=== PATIENT | male | born 1995 | race Caucasian/White ===

== ENCOUNTER 2017-06-07 10:44 | Emergency (ER) | payer OTHER ==
[~2017-06-07] VITALS: Ht 185.4 cm; Wt 108.9 kg
[~2017-06-07 10:44] MED LIST: ADDERALL XR25 MG PO; ADDERALL30 MG PO; ATARAX25 MG PO; FLEXERIL10 MG PO; HYDROCODONE BIT1 T11 PO; MOTRIN800 MG PO; Motrin,Rufen800 MG PO; PREDNICOT20 MG PO; Zofran4 MG PO
[2017-06-07 10:50] VITALS: BP 138/75
[2017-06-07 11:13] LABS: BASO % 0.1 % (0.0-1.0); EOS % 0.5 % (1.0-4.0); HEMATOCRIT 48.1 % (42.0-52.0); HEMOGLOBIN 17.2 g/dl (14.0-18.0); LYMPH # 0.9 10*3/uL (1.3-4.4); LYMPH % 10.7 % (27.0-41.0); MEAN CELL VOLUME 84.2 fl (80.0-94.0); MEAN CORPUSCULAR HGB 30.1 pg (27.0-31.0); MEAN CORPUSCULAR HGB CONC 35.8 g/dl (33.0-37.0); MEAN PLATELET VOLUME 9.4 fl (9.6-12.3); MONO # 0.9 10*3/uL (0.1-1.0); MONO % 11.5 % (3.0-9.0); NEUT # 6.2 10*3/uL (2.3-7.9); NEUT % 76.8 % (47.0-73.0); PLATELET COUNT AUTOMATED 180 10*3/uL (130-400); RED BLOOD COUNT 5.71 10*6/uL (4.50-5.90); RED CELL DISTRI WIDTH 12.5 % (0-14.5)
[2017-06-07 11:28] LABS: ALBUMIN 4.1 gm/dl (3.1-4.5); ALKALINE PHOSPHATASE 59 U/L (45-117); BUN 12 mg/dl (7-24); CHLORIDE 102 mmol/L (98-107); CREATININE 0.89 mg/dL (0.70-1.30); LIPASE 50 U/L (73-393); POTASSIUM 3.7 mmol/L (3.5-5.1); SGOT/AST 37 IU/L (3-35); SGPT/ALT 26 U/L (12-78); SODIUM 136 mmol/L (136-145); TOTAL PROTEIN 8.1 gm/dL (6.4-8.2)
[2017-06-07 12:23] LABS: BILIRUBIN 2+ (NEGATIVE); BLOOD 1+ (NEGATIVE); CLARITY SL CLOUDY (CLEAR); COLOR YELLOW (YELLOW); GLUCOSE NEGATIVE (NEGATIVE); KETONE 3+ (NEGATIVE); LEUKO ESTERASE NEGATIVE (NEGATIVE); NITRITE NEGATIVE (NEGATIVE); SPECIFIC GRAVITY 1.025 (1.005-1.030)
[2017-06-07 12:38] LABS: BACTERIA 2+; CALCIUM OXALATE CRYSTALS TRACE; MUCOUS 2+; RBC 16-20 rbc/hpf (0-2)
[2017-06-07] MEDS ORDERED: PHENERGAN25 M3 PO (14:50)
[2017-06-08] MEDS ORDERED: REGLAN10 M1 PO (03:29)
[2017-06-08] MEDS ORDERED: BENADRYL ALLERG25 M5 PO (03:29)
[2017-06-08] MEDS ORDERED: SEPTDS PO (03:31)
== END 2017-06-07 14:56 | disposition home or self-care (01) ==
LOC: ED 10:44
PROVIDERS: Family Medicine
DX: K52.9 Noninfective gastroenteritis and colitis, unspecified (principal); R11.2 Nausea with vomiting, unspecified; Z79.899 Other long term (current) drug therapy

== ENCOUNTER 2017-06-08 03:06 | Emergency (ER) | payer OTHER ==
[~2017-06-08] VITALS: Wt 108.9 kg
[~2017-06-08 03:06] MED LIST changes: +PHENERGAN25 M3 PO
[2017-06-08 03:11] VITALS: BP 145/79
[2017-06-08] MEDS ORDERED: REGLAN10 M1 PO (03:29)
[2017-06-08] MEDS ORDERED: BENADRYL ALLERG25 M5 PO (03:29)
[2017-06-08] MEDS ORDERED: SEPTDS PO (03:31)
[2017-06-09] MEDS ORDERED: ZOFRAN ODT4 MG SL (00:34)
[2017-06-09] MEDS ORDERED: PROTONIX40 MG PO (00:34)
[2017-06-09] MEDS ORDERED: ADDERALL 20 MG20 MG PO (01:18)
== END 2017-06-08 03:48 | disposition home or self-care (01) ==
LOC: ED 03:06
DX: N39.0 Urinary tract infection, site not specified (principal); R11.10 Vomiting, unspecified; R31.9 Hematuria, unspecified

== ENCOUNTER 2017-06-08 22:29 | Inpatient (IN) | payer OTHER ==
[~2017-06-08] VITALS: Ht 185.4 cm; Wt 104.4 kg
--- NOTE | ~2017-06-08 | O ---
[place], [place] OPERATIVE NOTE NAME: OSCAR DUQUE JR UNIT #: [id number] ROOM: 503 DOCTOR: ALISSA ANTOINE MDJOHNMILA BIRTHDATE: [birth year] DOS: HISTORY OF PRESENT ILLNESS: A 22-year-old patient who presented with chief complaint of relentless nausea, vomiting 2 days ago and eventually has had some streaks of blood in his emesis. His white blood cell at the time of admission was 8, H and H of 17 and 48. His latest CBC today again is stable and no leukocytosis. Basic metabolic panel: GFR greater than 60. Electrolytes are within normal limit. Comprehensive metabolic panel, electrolytes reassessed. Liver function test normal. Amylase and lipase within normal limit. CT scan of the abdomen and pelvis: No definitive intra-abdominal pathology was found and no biliary dilation, no point of concern. Urine cultures were negative. PAST MEDICAL HISTORY: ADHD. SOCIAL HISTORY: Nonsmoker, nonalcohol consumer. PAST SURGICAL HISTORY: Nil. FAMILY HISTORY: Noncontributory. PROCEDURE: Today's procedure part of investigation is panendoscopy plus biopsy. PREMEDICATION: Versed and Diprivan. SCOPE: Olympus forward-viewing gastroscope Q10 video. REPORT: After putting the patient in the left lateral position and after application of lubricant to the scope, the scope was introduced. Thereafter, under direct visualization, I advanced through the length of esophagus without difficulty. Distal esophageal ulceration was noticed. Gastric pouch was entered. Gastritis was identified. Antrum was biopsied. Duodenal bulb, second and third part patent and no obstruction, no mass in the stomach. No acute point of concern. The patient extubated after GI reflection of the scope reveals cardia to be benign and bile reflux, distal esophagitis was noticed. The patient tolerated the procedure well. IMPRESSION: Distal esophagitis and distal esophageal ulcerations, superficial; however, gastritis, status post biopsy. PLAN AND DISCUSSION: I believe this patient has had an event of viral gastroenteritis to be etiology for his distress. Therefore, we are going to topically treat with Sucralfate slurry sips 2 grams q.i.d. We are going to keep him on Protonix 40 mg b.i.d. while he is in the hospital. We are going to give him a dose of Reglan to reverse his nausea feeling and at the time of discharge, he can be discharged on Protonix 40 mg daily. As far as diet is concerned, we are going to offering him GERD diet to see if he can tolerate. [place], [place] OPERATIVE NOTE NAME: DUNIA YUSUFOSCAR PIPE UNIT #: [id number] ROOM: [facility] DOCTOR: GUIDO ANTOINE MD BIRTHDATE: [birth year] GUIDO ANTOINE MD CM:OPRECORD:OPERATIVE NOTE [id number] GUIDO ANTOINE MD 06/09/172115 interface
--- NOTE | ~2017-06-08 | WRIGHTHP ---
[place], [place] PATIENT HISTORY AND PHYSICAL EXAM NAME: OSCAR DUQUE JR UNIT #: [id number] ROOM: 503 DOCTOR: CLARA BALDERAS MD BIRTHDATE: [birth year] DOS: 06/09/2017 HISTORY OF PRESENT ILLNESS: The patient is 22 years old patient who presents with complaints of nausea, emesis. The patient states that he had multiple emeses yesterday and was bloody and so he decided to come into the Emergency Room, some minimal abdominal pain also. Denies having any fever, any chills, any chest pains or palpitations. States that his throat is quite sore and he is unable to swallow even spit, but does not have any fever or chills. PAST MEDICAL HISTORY: Significant for ADHD. MEDICATION: He takes Adderall as medication. SOCIAL HISTORY: He does not smoke, he does not drink. The last time he had alcohol was a month ago as per the patient. He occasionally smokes weed. PHYSICAL EXAMINATION: GENERAL: He is awake and alert and oriented. VITAL SIGNS: Blood pressure is 133/71, pulse of 74, respirations 18, temperature 98.6, a few exudates note in the back of posterior pharynx. LUNGS: Diminished breath sounds, clear. HEART: Regular. ABDOMEN: Soft. ASSESSMENT AND PLAN: 1. Abdominal pain, nausea, emesis, possibly gastritis. Protonix has been ordered. Dr. Parada has been consulted for procedure this morning. 2. Possible strep throat. Strep screen has been ordered and Cetacaine spray will be given to the bedside. If the strep screen does come back positive, antibiotics will be started. 3. Attention deficit hyperactivity disorder, on Adderall. Meds on hold because of his pending procedure. CLARA BALDERAS MD CM:HISPHYS:PATIENT HISTORY AND PHYSICAL EXAMINATION 5 [id number] CLARA BALDERAS MD 06/09/17 1026 interface
--- NOTE | ~2017-06-08 | DS ---
[place], [place] DISCHARGE SUMMARY [id number] UNIT #: [id number] ROOM: 503 DOCTOR: KOKI HARRIS MD BIRTHDATE: [birth year] DOS: 06/10/2017 DISCHARGE DIAGNOSES: 1. The patient with distal esophageal ulcers on EGD with recurrent nausea, vomiting prior to admission have completely resolved. 2. Attention deficit disorder. HOSPITAL COURSE: The patient presented to the Emergency Department at [facility] with complaints of recurrent nausea, vomiting and after he came to the Emergency Department again he was admitted and treated with hydration with normal saline and taken for an EGD by Dr. Parada who performed an EGD, showing distal esophageal ulcers. Dr. Parada recommended treatment with Protonix, which will be continued. The patient will also continue on his Adderall that he was taking at home and follow up with Dr. Nael Peña, his PCP within a week of discharge. LABORATORY DATA: Urinalysis showing no signs of infection. Normal CBC. EGD results as mentioned above. Lactic acid level is normal. DISCHARGE MANAGEMENT: The patient to take Carafate 2 grams q.i.d., Protonix 40 mg a day, Adderall 40 mg once a day and follow up with his PCP, Dr. Nael Peña, in less than a week. KOKI HARRIS MD CM:ARIANA [id number] KOKI HARRIS MD 06/10/171851 interface
[~2017-06-08 22:29] MED LIST changes: +BENADRYL ALLERG25 M5 PO; +REGLAN10 M1 PO; +SEPTDS PO
[2017-06-08 22:36] VITALS: BP 149/73
[2017-06-08 23:43] LABS: ALKALINE PHOSPHATASE 53 U/L (45-117); BUN 14 mg/dl (7-24); CHLORIDE 102 mmol/L (98-107); CREATININE 0.93 mg/dL (0.70-1.30); LIPASE 53 U/L (73-393); POTASSIUM 3.7 mmol/L (3.5-5.1); SGOT/AST 32 IU/L (3-35); SGPT/ALT 26 U/L (12-78); SODIUM 137 mmol/L (136-145); TOTAL PROTEIN 7.8 gm/dL (6.4-8.2)
[2017-06-08 23:45] LABS: HEMATOCRIT 45.9 % (42.0-52.0); HEMOGLOBIN 16.7 g/dl (14.0-18.0); MEAN CELL VOLUME 83.3 fl (80.0-94.0); MEAN CORPUSCULAR HGB 30.3 pg (27.0-31.0); MEAN CORPUSCULAR HGB CONC 36.4 g/dl (33.0-37.0); MEAN PLATELET VOLUME 9.9 fl (9.6-12.3); PLATELET COUNT AUTOMATED 178 10*3/uL (130-400); RED BLOOD COUNT 5.51 10*6/uL (4.50-5.90); RED CELL DISTRI WIDTH 12.4 % (0-14.5); WHITE BLOOD COUNT 6.1 10*3/uL (4.8-10.8)
[2017-06-09] VITALS (9 sets, daily range): BP systolic 114–137; BP diastolic 65–77
[2017-06-09 00:05] LABS: ATYPICAL LYMPHS 3 % (0-0); PLATELET SUFFICIENCY NORMAL (NORMAL); TOTAL CELLS COUNTED 100 #CELLS
--- NOTE | 2017-06-09 00:28 | NUR ---
PT STATES HE IS STILL UNABLE TO PROVIDE URINE SPECIMEN.
[2017-06-09] MEDS ORDERED: ZOFRAN ODT4 MG SL (00:34)
[2017-06-09] MEDS ORDERED: PROTONIX40 MG PO (00:34)
--- NOTE | 2017-06-09 01:05 | NUR ---
Time: 104 A 22 year old M admitted to under services of DR. STEVEN KIMBROUGH,KOKI Phillips Pt. arrived via wheel chair from ER. Chief complaint: N/V/D SINCE MONDAY. ER VISIT X 3 THIS WK. NICOLASA RODRIGUES
[2017-06-09] MEDS ORDERED: ADDERALL 20 MG20 MG PO (01:18)
--- NOTE | 2017-06-09 01:45 | NUR ---
DR HARRIS CONTACTED, ADMISSION ORDERS RECEIVED
--- NOTE | 2017-06-09 01:55 | NUR ---
CALLED TO ROOM BY GIRLFRIEND. PATIENT HAS MODERATE WATER-LIKE EMESIS WITH BLOOD STREAKS.
--- NOTE | 2017-06-09 02:15 | NUR ---
MEDS ADMINISTERED PER PRN ORDER: ZOFRAN IV FOR NAUSEA, MORPHINE IV FOR THROAT PAIN RATING A 10, TRAZADONE PO TO ASSIST WITH SLEEP. IV FLUIDS INITIATED. CALL LIGHT WITHIN REACH. WILL MONITOR
--- NOTE | 2017-06-09 04:00 | NUR ---
MEDS APPEAR EFFECTIVE. SLEEPING. RESPIRATIONS EASY. IV FLUIDS MAINTAINED. CALL LIGHT WITHIN REACH
--- NOTE | 2017-06-09 06:00 | NUR ---
RESTED SINCE ARRIVING ON FLOOR. NPO FOR EGD WITH ELINA TODAY. IV FLUIDS MAINTAINED. CALL LIGHT WITHIN REACH.
[2017-06-09 06:50] LABS: BASO % 0.5 % (0.0-1.0); EOS % 0.5 % (1.0-4.0); HEMATOCRIT 42.5 % (42.0-52.0); HEMOGLOBIN 14.9 g/dl (14.0-18.0); LYMPH # 1.1 10*3/uL (1.3-4.4); LYMPH % 14.9 % (27.0-41.0); MEAN CELL VOLUME 84.8 fl (80.0-94.0); MEAN CORPUSCULAR HGB 29.7 pg (27.0-31.0); MEAN CORPUSCULAR HGB CONC 35.1 g/dl (33.0-37.0); MEAN PLATELET VOLUME 10.2 fl (9.6-12.3); MONO # 1.1 10*3/uL (0.1-1.0); MONO % 14.4 % (3.0-9.0); NEUT # 5.1 10*3/uL (2.3-7.9); NEUT % 69.4 % (47.0-73.0); PLATELET COUNT AUTOMATED 178 10*3/uL (130-400); RED BLOOD COUNT 5.01 10*6/uL (4.50-5.90); RED CELL DISTRI WIDTH 12.5 % (0-14.5); WHITE BLOOD COUNT 7.4 10*3/uL (4.8-10.8)
[2017-06-09 07:01] LABS: BUN 12 mg/dl (7-24); CHLORIDE 104 mmol/L (98-107); POTASSIUM 3.7 mmol/L (3.5-5.1); SODIUM 137 mmol/L (136-145)
[2017-06-09 10:19] LABS: BILIRUBIN 1+ (NEGATIVE); BLOOD TRACE-INTACT (NEGATIVE); CLARITY CLEAR (CLEAR); COLOR YELLOW (YELLOW); GLUCOSE NEGATIVE (NEGATIVE); KETONE 3+ (NEGATIVE); LEUKO ESTERASE NEGATIVE (NEGATIVE); NITRITE NEGATIVE (NEGATIVE); PH 6.5 (5.0-9.0)
[2017-06-09 10:30] LABS: RBC 0-2 rbc/hpf (0-2); WBC 0-2 wbc/hpf (0-5)
--- NOTE | 2017-06-09 14:15 | NUR ---
PATIENT LEFT FOR EGD.
--- NOTE | 2017-06-09 17:15 | NUR ---
CALLED PHARMACY ABOUT ADDERALL. THEY STATED THEY WOULD UP TO STOCK THE PYXIS
--- NOTE | 2017-06-09 18:20 | NUR ---
CALLED PHARMACY ABOUT ADDERALL AGAIN. STATED THEY WERE BUSY AND WOULD BE MAKING ROUNDS WITH IT SOON.
--- NOTE | 2017-06-09 20:30 | NUR ---
RESTING IN BED WATCHING TV WITH GIRLFRIEND PRESENT AT BEDSIDE. VOICE HOARSE. RESPIRATIONS EASY. LUNGS CLEAR. PULSE OX 100% RA. DENIES N/V/D. TOLERATING DIET. IV FLUIDS INFUSING PER ORDER. CALL LIGHT WITHIN REACH. NO VOICED COMPLAINTS
[2017-06-10] VITALS: BP 141/87
--- NOTE | 2017-06-10 01:00 | NUR ---
REQUESTED AND RECEIVED TYLENOL PER PRN ORDER FOR COMPLAINTS OF HEADACHE RATING A 6. CALL LIGHT WITHIN REACH. WILL MONITOR FOR EFFECTIVENESS
--- NOTE | 2017-06-10 03:00 | NUR ---
EARLIER TYLENOL APPEARS EFFECTIVE. SLEEPING. RESPIRATIONS EASY. IV FLUIDS MAINTAINED. CALL LIGHT WITHIN REACH
--- NOTE | 2017-06-10 06:00 | NUR ---
SLEPT THROUGHOUT NIGHT WITH NO DISTRESS NOTED. RESPIRATIONS EASY. NO N/V/D. IV FLUIDS MAINTAINED. CALL LIGHT WITHIN REACH. NO VOICED COMPLAINTS THIS SHIFT
--- NOTE | 2017-06-10 07:33 | NUR ---
Shift chart check completed.
[2017-06-10 08:00] VITALS: BP 136/82
[2017-06-10 12:00] VITALS: BP 135/75
--- NOTE | 2017-06-10 15:50 | NUR ---
PATIENT STATES HE ONLY TAKES ADDERALL 1 TIME A DAY. WILL CORRECT MED REQ TO STATE THAT. ALREADY OPENED 4 PACKETS. WILL WASTE THEM WITH ANOTHER NURSE AND CREDIT THE OTHER 4.
[2017-06-10 16:00] VITALS: BP 136/75
[2017-06-10] MEDS ORDERED: Carafate1 GM/10 ML PO (17:38)
--- NOTE | 2017-06-10 18:14 | NUR ---
WENT OVER D/C INSTRUCTIONS WITH PATIENT. REMOVED IV WITH CATHETER INTACT AND BLEEDING CONTROLLED. PATIENT GIVEN SCRIPT FOR CARAFATE. PATIENT AMBULATED TO THE EXIT WITHOUT DIFFICULTY. PATIENT IS D/C HOME.
== END 2017-06-10 18:14 | disposition home or self-care (01) | DRG 378 ==
LOC: ED 22:29 → EDHOLD 06-09 00:48 → 5E 06-09 00:48
PROVIDERS: Emergency Medicine; ADMIT Internal Medicine
PROC: 0DB78ZX Excision of Stomach, Pylorus, Via Natural or Artificial Opening Endoscopic, Diagnostic (ICD-10-PCS; principal; 2017-06-09)
DX: K92.2 Gastrointestinal hemorrhage, unspecified (principal); K22.10 Ulcer of esophagus without bleeding; E66.9 Obesity, unspecified; K21.0 Gastro-esophageal reflux disease with esophagitis; F90.9 Attention-deficit hyperactivity disorder, unspecified type; J02.9 Acute pharyngitis, unspecified; Z79.899 Other long term (current) drug therapy; Z68.30 Body mass index [BMI] 30.0-30.9, adult

== ENCOUNTER → 2018-10-04 | Outpatient (CLI) | payer OTHER ==
[~2018-10-04] MED LIST changes: +ADDERALL 20 MG20 MG PO; +Carafate1 GM/10 ML PO; +PROTONIX40 MG PO; +ZOFRAN ODT4 MG SL
[2018-10-04 11:19] LABS: HEMATOCRIT 49.5 % (42.0-52.0); HEMOGLOBIN 16.5 g/dl (14.0-18.0); MEAN CELL VOLUME 90.2 fl (80.0-94.0); MEAN CORPUSCULAR HGB 30.1 pg (27.0-31.0); MEAN CORPUSCULAR HGB CONC 33.3 g/dl (33.0-37.0); MEAN PLATELET VOLUME 10.1 fl (9.6-12.3); RED BLOOD COUNT 5.49 10*6/uL (4.50-5.90); RED CELL DISTRI WIDTH 12.5 % (0-14.5); WHITE BLOOD COUNT 7.7 10*3/uL (4.8-10.8)
[2018-10-04 11:27] LABS: ALBUMIN 4.1 gm/dl (3.1-4.5); BUN 10 mg/dl (7-24); CHLORIDE 108 mmol/L (98-107); CHOLESTEROL 158 mg/dL (<200); CREATININE 0.96 mg/dL (0.70-1.30); SGOT/AST 12 IU/L (3-35); SGPT/ALT 25 U/L (12-78); SODIUM 140 mmol/L (136-145); TRIGLYCERIDES 76 mg/dl (<150); VLDL CHOLESTEROL 15 mg/dL (6-40)
[2018-10-04 11:28] LABS: ALKALINE PHOSPHATASE 49 U/L (45-117); HDL CHOLESTEROL 46 mg/dl (40-60)
[2018-10-04 11:33] LABS: LDL CHOLESTEROL 97 mg/dL (9-159)
== END | disposition home or self-care (01) ==
LOC: LAB 10:26
PROVIDERS: Family Medicine
DX: E74.9 Disorder of carbohydrate metabolism, unspecified (principal); E55.9 Vitamin D deficiency, unspecified; E78.00 Pure hypercholesterolemia, unspecified

== ENCOUNTER 2019-01-03 19:26 | Emergency (ER) | payer SELFPAY ==
[~2019-01-03] VITALS: Ht 185.4 cm; Wt 104.3 kg
[2019-01-03 19:28] VITALS: BP 118/62
== END 2019-01-03 20:28 | disposition home or self-care (01) ==
LOC: ED 19:26
DX: S61.211A Laceration without foreign body of left index finger without damage to nail, initial encounter (principal); E66.9 Obesity, unspecified; Z79.899 Other long term (current) drug therapy; W45.8XXA Other foreign body or object entering through skin, initial encounter; Y93.89 Activity, other specified; Y92.89 Other specified places as the place of occurrence of the external cause; Y99.8 Other external cause status

== ENCOUNTER 2019-08-17 16:22 | Emergency (ER) | payer SELFPAY ==
[~2019-08-17] VITALS: Ht 185.4 cm; Wt 108.9 kg
[2019-08-17 16:22] VITALS: BP 142/86
== END 2019-08-17 17:55 | disposition home or self-care (01) ==
LOC: ED 16:22
DX: B34.9 Viral infection, unspecified (principal); I10 Essential (primary) hypertension; Z79.899 Other long term (current) drug therapy

== ENCOUNTER 2019-08-19 22:44 | Emergency (ER) | payer SELFPAY ==
[~2019-08-19] VITALS: Ht 185.4 cm; Wt 108.9 kg
[2019-08-19 22:46] VITALS: BP 117/90
[2019-08-20] MEDS ORDERED: ZOFRAN4 MG PO (00:46)
== END 2019-08-20 00:51 | disposition home or self-care (01) ==
LOC: ED 22:44
DX: A08.4 Viral intestinal infection, unspecified (principal); Z79.899 Other long term (current) drug therapy

== ENCOUNTER → 2021-05-21 | Outpatient (CLI) | payer OTHER ==
[~2021-05-21] MED LIST changes: +ZOFRAN4 MG PO
== END | disposition home or self-care (01) ==
LOC: COVID19 18:40
PROVIDERS: ATTEND Internal Medicine
DX: U07.1 COVID-19 (principal)

== ENCOUNTER 2021-10-29 09:56 | Emergency (ER) | payer SELFPAY ==
[~2021-10-29] VITALS: Ht 185.4 cm; Wt 104.3 kg
[2021-10-29 10:02] VITALS: BP 114/94
[2021-10-29] MEDS ORDERED: POLYSPORIN OINT15 GM T (10:36)
[2021-10-29] MEDS ORDERED: SEPTDS PO (10:36)
== END 2021-10-29 11:00 | disposition home or self-care (01) ==
LOC: ED 09:56
DX: L03.115 Cellulitis of right lower limb (principal)

== ENCOUNTER → 2022-04-08 | Outpatient (CLI) | payer MEDICAID ==
[~2022-04-08] MED LIST changes: +POLYSPORIN OINT15 GM T
[2022-04-08 10:03] LABS: HEMATOCRIT 45.9 % (42.0-52.0); MEAN CELL VOLUME 92.5 fl (80.0-94.0); MEAN CORPUSCULAR HGB 32.1 pg (27.0-31.0); MEAN CORPUSCULAR HGB CONC 34.6 g/dl (33.0-37.0); MEAN PLATELET VOLUME 9.1 fl (9.6-12.3); RED BLOOD COUNT 4.96 10*6/uL (4.50-5.90); RED CELL DISTRI WIDTH 12.8 % (0-14.5); WHITE BLOOD COUNT 7.9 10*3/uL (4.8-10.8)
[2022-04-08 10:22] LABS: BUN 12 mg/dl (7-24); CHLORIDE 105 mmol/L (98-107); POTASSIUM 4.5 mmol/L (3.5-5.1); SODIUM 139 mmol/L (136-145)
[2022-04-08 10:27] LABS: ALKALINE PHOSPHATASE 49 U/L (45-117); CHOLESTEROL 183 mg/dL (<200); CREATININE 0.99 mg/dL (0.70-1.30); LDL CHOLESTEROL 85 mg/dL (9-159); SGOT/AST 24 IU/L (3-35); SGPT/ALT 38 U/L (12-78); TOTAL PROTEIN 7.3 gm/dL (6.4-8.2); TRIGLYCERIDES 108 mg/dl (<150)
[2022-04-08 10:46] LABS: VITAMIN D, 25-HYDROXY 28.2 ng/mL (30-100)
== END | disposition home or self-care (01) ==
LOC: LAB 09:41
PROVIDERS: ATTEND Family Medicine
DX: Z00.00 Encounter for general adult medical examination without abnormal findings (principal); F90.1 Attention-deficit hyperactivity disorder, predominantly hyperactive type; E55.9 Vitamin D deficiency, unspecified

== ENCOUNTER 2022-09-11 11:37 | Emergency (ER) | payer MEDICAID ==
[~2022-09-11] VITALS: Ht 185.4 cm; Wt 108.9 kg
[2022-09-11 12:13] VITALS: BP 131/87
[2022-09-11 12:58] LABS: BASO % 0.6 % (0.0-1.0); EOS # 0.3 10*3/uL (0.0-0.4); EOS % 4.4 % (1.0-4.0); LYMPH # 2.1 10*3/uL (1.3-4.4); MEAN CELL VOLUME 93.2 fl (80.0-94.0); MEAN CORPUSCULAR HGB 31.8 pg (27.0-31.0); MEAN CORPUSCULAR HGB CONC 34.1 g/dl (33.0-37.0); MEAN PLATELET VOLUME 9.5 fl (9.6-12.3); MONO # 0.8 10*3/uL (0.1-1.0); MONO % 11.8 % (3.0-9.0); NEUT # 3.1 10*3/uL (2.3-7.9); NEUT % 49.7 % (47.0-73.0); PLATELET COUNT AUTOMATED 202 10*3/uL (130-400); RED BLOOD COUNT 4.72 10*6/uL (4.50-5.90); RED CELL DISTRI WIDTH 12.9 % (0-14.5); WHITE BLOOD COUNT 6.3 10*3/uL (4.8-10.8)
[2022-09-11 13:12] LABS: ALKALINE PHOSPHATASE 49 U/L (46-116); BUN 12 mg/dl (9-23); CHLORIDE 108 mmol/L (98-107); SGPT/ALT 28 U/L (10-49); TOTAL PROTEIN 6.9 gm/dL (6.0-8.0); URIC ACID 5.8 mg/dL (3.7-9.2)
[2022-09-11] MEDS ORDERED: IMPOYZ60 GM T (13:24)
== END 2022-09-11 13:45 | disposition home or self-care (01) ==
LOC: ED 11:37
PROVIDERS: Student in an Organized Health Care Education/Training Program
DX: L60.0 Ingrowing nail (principal); F10.90 Alcohol use, unspecified, uncomplicated

== ENCOUNTER 2023-05-31 10:19 | Emergency (ER) | payer OTHER ==
[~2023-05-31] VITALS: Ht 185.4 cm; Wt 106.6 kg
[~2023-05-31 10:19] MED LIST changes: +IMPOYZ60 GM T
[2023-05-31 10:42] VITALS: BP 162/106
[2023-05-31] MEDS ORDERED: MIXED AMPHETAMI25 MG PO (10:43)
[2023-05-31] MEDS ORDERED: ANUSOL-HC25 MG R (11:10)
== END 2023-05-31 11:05 | disposition home or self-care (01) ==
LOC: ED 10:19
DX: K64.4 Residual hemorrhoidal skin tags (principal); F90.9 Attention-deficit hyperactivity disorder, unspecified type; I10 Essential (primary) hypertension

== ENCOUNTER → 2023-08-29 | Outpatient (CLI) | payer MEDICAID ==
[~2023-08-29] MED LIST changes: +ANUSOL-HC25 MG R; +MIXED AMPHETAMI25 MG PO
[2023-08-29 10:26] LABS: HEMATOCRIT 45.3 % (42.0-52.0); MEAN CORPUSCULAR HGB 31.8 pg (27.0-31.0); MEAN CORPUSCULAR HGB CONC 33.1 g/dl (33.0-37.0); MEAN PLATELET VOLUME 9.1 fl (9.6-12.3); RED BLOOD COUNT 4.72 10*6/uL (4.50-5.90); RED CELL DISTRI WIDTH 12.4 % (0-14.5); WHITE BLOOD COUNT 8.1 10*3/uL (4.8-10.8)
[2023-08-29 10:58] LABS: ALKALINE PHOSPHATASE 59 U/L (46-116); BUN 8 mg/dl (9-23); CHLORIDE 106 mmol/L (98-107); CHOLESTEROL 157 mg/dL (<200); FREE T4 1.01 ng/dl (0.89-1.76); LDL CHOLESTEROL 96 mg/dL (9-159); POTASSIUM 4.1 mmol/L (3.4-5.1); SGPT/ALT 19 U/L (5-49); TOTAL PROTEIN 7.6 gm/dL (6.0-8.0); TRIGLYCERIDES 74 mg/dl (<150)
== END | disposition home or self-care (01) ==
LOC: LAB 10:04
PROVIDERS: ATTEND Family Medicine
DX: Z13.220 Encounter for screening for lipoid disorders (principal); F90.9 Attention-deficit hyperactivity disorder, unspecified type; K59.00 Constipation, unspecified; R53.83 Other fatigue; K92.1 Melena

== ENCOUNTER → 2024-02-07 | Outpatient (CLI) | payer MEDICAID | LOC: RAD 14:32 | PROVIDERS: ATTEND Family Medicine | DX: M25.562 Pain in left knee (principal); M25.561 Pain in right knee; M79.89 Other specified soft tissue disorders ==

== ENCOUNTER 2024-07-15 13:42 | Emergency (ER) | payer MEDICAID ==
[~2024-07-15] VITALS: Ht 185.4 cm; Wt 106.6 kg
[2024-07-15] MEDS ORDERED: Acetaminophen/Hydrocodone 5 MG/325 MG TABLET PO ONE (13:55)
[2024-07-15] MEDS ORDERED: HYDROCODONE-AC1 EAC1 PO (14:41)
== END 2024-07-15 14:51 | disposition home or self-care (01) ==
LOC: ED 13:42
DX: S22.32XA Fracture of one rib, left side, initial encounter for closed fracture (principal); F90.8 Attention-deficit hyperactivity disorder, other type; W11.XXXA Fall on and from ladder, initial encounter; Y93.89 Activity, other specified; Y92.89 Other specified places as the place of occurrence of the external cause; Y99.8 Other external cause status

== ENCOUNTER 2024-10-23 15:42 | Emergency (ER) | payer MEDICAID ==
[~2024-10-23] VITALS: Ht 185.4 cm; Wt 108.9 kg
[~2024-10-23 15:42] MED LIST changes: +HYDROCODONE-AC1 EAC1 PO
[2024-10-23 15:55] VITALS: BP 128/68
[2024-10-23] MEDS ORDERED: Bacitracin Zinc 14 GM TUBE T ONE (16:15)
[2024-10-23] MEDS ORDERED: Tdap Vaccine 0.5 ML SYR (Adult Vaccine) IM ONE (16:15)
== END 2024-10-23 17:46 | disposition left against medical advice (07) ==
LOC: ED 15:42
DX: S61.211A Laceration without foreign body of left index finger without damage to nail, initial encounter (principal); F90.9 Attention-deficit hyperactivity disorder, unspecified type; Z53.29 Procedure and treatment not carried out because of patient's decision for other reasons; W27.0XXA Contact with workbench tool, initial encounter; Y93.89 Activity, other specified; Y92.89 Other specified places as the place of occurrence of the external cause; Y99.8 Other external cause status

== ENCOUNTER 2025-03-17 12:29 | Emergency (ER) | payer MEDICAID ==
[~2025-03-17] VITALS: Ht 185.4 cm; Wt 108.9 kg
[2025-03-17 12:48] VITALS: BP 118/67
[2025-03-17] MEDS ORDERED: Tdap Vaccine 0.5 ML SYR (Adult Vaccine) IM ONE (13:00)
[2025-03-17] MEDS ORDERED: Amoxicillin/Clavulanate Pota 875 MG TAB PO ONE (13:00)
[2025-03-17] MEDS ORDERED: AMOX-CLAV 875-1 EACH PO (13:06)
== END 2025-03-17 13:35 | disposition home or self-care (01) ==
LOC: ED 12:29
DX: S91.332A Puncture wound without foreign body, left foot, initial encounter (principal); I10 Essential (primary) hypertension; Z79.899 Other long term (current) drug therapy; W22.8XXA Striking against or struck by other objects, initial encounter; Y93.89 Activity, other specified; Y92.89 Other specified places as the place of occurrence of the external cause; Y99.8 Other external cause status

== ENCOUNTER 2025-04-15 09:29 | Emergency (ER) | payer MEDICAID ==
[~2025-04-15] VITALS: Ht 185.4 cm; Wt 108.9 kg
[~2025-04-15 09:29] MED LIST changes: +AMOX-CLAV 875-1 EACH PO
[2025-04-15 09:36] VITALS: BP 137/75
[2025-04-15] MEDS ORDERED: Acetaminophen/Oxycodone 5 MG/325 MG TABLET PO ONE (10:25)
[2025-04-15] MEDS ORDERED: MELOXICAM15 MG PO (10:37)
== END 2025-04-15 11:11 | disposition home or self-care (01) ==
LOC: ED 09:29
DX: M79.672 Pain in left foot (principal); I10 Essential (primary) hypertension; F98.8 Other specified behavioral and emotional disorders with onset usually occurring in childhood and adolescence

== ENCOUNTER 2025-04-19 07:41 | Emergency (ER) | payer MEDICAID ==
[~2025-04-19] VITALS: Ht 185.4 cm; Wt 106.6 kg
[~2025-04-19 07:41] MED LIST changes: +MELOXICAM15 MG PO
[2025-04-19 07:56] VITALS: BP 133/86
[2025-04-19] MEDS ORDERED: CIPRO500 MG PO (08:10)
== END 2025-04-19 08:19 | disposition home or self-care (01) ==
LOC: ED 07:41
DX: S90.822A Blister (nonthermal), left foot, initial encounter (principal); L02.612 Cutaneous abscess of left foot; Z79.899 Other long term (current) drug therapy; W22.09XA Striking against other stationary object, initial encounter; Y93.89 Activity, other specified; Y92.89 Other specified places as the place of occurrence of the external cause; Y99.8 Other external cause status